=== PATIENT | female | born 1955 ===

== ENCOUNTER 2018-09-16 06:56 | Day surgery (SDC) | payer OTHER ==
[~2018-09-16] VITALS: Ht 160 cm; Wt 72.6 kg
[2018-09-16] VITALS (14 sets, daily range): BP systolic 94–151; BP diastolic 46–75
[~2018-09-16 06:56] MED LIST: AMLODIPINE BESYL5 MG ORAL; CARVEDILOL6.25 MG ORAL; Clindamycin 600mg/D5W 50ml IV ONE; IBUPROFEN600 MG ORAL; Zemuron 50mg/5ml Inj IV ONE; celeBREX 200mg Cap **SURGERY PATIENTS ONLY ORAL ONE; oxyCONTIN 20mg tab ORAL ONE
[2018-09-16] MEDS ORDERED: ASPIR 8181 MG ORAL (07:49)
[2018-09-16] MEDS ORDERED: oxyCONTIN 20mg tab ORAL ONE (08:08)
[2018-09-16] MEDS ORDERED: celeBREX 200mg Cap **SURGERY PATIENTS ONLY ORAL ONE (08:08)
--- NOTE | 2018-09-16 08:15 | Anethesia Preoperative Eval ---
Anesthesia Pre-op PMH/ROS General Date of Evaluation: Sep 16, 2018 Anesthesiologist: Jett ASA Score: ASA 2 Mallampati Score Class I : Soft palate, uvula, fauces, pillars visible Class II: Soft palate, uvula, fauces visible Class III: Soft palate, base of uvula visible Class IV: Only hard plate visible Mallampati Classification: Class II Surgeon: Manny Diagnosis: Right shoulder impingement Surgical Procedure: Right shoulder arthroscopy with decompression Anesthesia History: none Family History: no anesthesia problems Allergies: Coded Allergies: AMOXICILLIN (Verified Allergy, Severe, 09/15/18) ITCHING Medications: see eMAR Patient NPO?: Yes NPO Date: Sep 15, 2018 NPO Time: 22:00 Past Medical History Cardiovascular: Reports: HTN, other - HLD; Denies: CAD, [place], valve dz, arrhythmia Pulmonary: Denies: asthma, COPD, [place], other Gastrointestinal/Genitourinary: Denies: GERD, CRI, ESRD, other Neurologic/Psychiatric: Denies: dementia, CVA, depression/anxiety, TIA, other Endocrine: Reports: DM; Denies: hypothyroidism, steroids, other HEENT: Denies: cataract (L), cataract (R), glaucoma, [place] (L), [place] (R), other Hematology/Immune: Denies: anemia, DVT, bleeding disorder, other Musculoskeletal/Integumentary: Denies: OA, RA, DJD, DDD, edema, other PSxH Narrative: lap bette Anesthesia Pre-op Phys. Exam Physician Exam Last Vital Signs Date Time Temp Pulse Resp B/P (MAP) Pulse Ox O2 Delivery O2 Flow Rate FiO2 09/16/18 07:51 98.2 69 18 151/71 96 Room Air Constitutional: NAD Cardiovascular: RRR Respiratory: CTA Airway Exam Mallampati Score: Class II MO: full ROM: full Teeth: intact Anesthesia Pre-op A/P Labs see chart Studies Pre-op Studies: EKG - sr Risk Assessment & Plan Assessment: ASA II Plan: GA Status Change Before Surgery: No Pre-Antibiotics Drug: Tara Muro MD Sep 16, 2018 08:15
[2018-09-16] MEDS ORDERED: LR 1000ml 1,000 ML IVLG SCH (08:17)
[2018-09-16] MEDS ORDERED: DiphenhydrAMINE 50mg/ml Inj IVP PRN (08:30)
[2018-09-16] MEDS ORDERED: fentaNYL 100 mcg/2 mL IV PRN (08:30)
[2018-09-16] MEDS ORDERED: LORazepam Inj 2mg/ml 1ml IV PRN (08:30)
[2018-09-16] MEDS ORDERED: Hydromorphone 0.5mg/0.5ml inj IVP PRN (08:30)
[2018-09-16] MEDS ORDERED: Ketorolac 30mg Inj IV PRN (08:30)
[2018-09-16] MEDS ORDERED: Midazolam 2mg/2ml Inj IVP PRN (08:30)
--- NOTE | 2018-09-16 09:11 | Pre-Procedure Note/Attestation ---
Pre-Procedure Note/Attestation Complete Prior to Procedure Planned Procedure: right Procedure Narrative: shoulder arthroscopy, sad, possible rc repair Indications for Procedure Pre-Operative Diagnosis: right shoulder impingement, rct Attestation I attest that I discussed the nature of the procedure; its benefits; risks and complications; and alternatives (and the risks and benefits of such alternatives ), prior to the procedure, with the patient (or the patient's legal medical field representative). I attest that, if there was a reasonable possibility of needing a blood transfusion, the patient (or the patient's legal medical field representative) was given the [facility] standardized written summary, pursuant to the Lazaro Darrin Blood Safety Act ([place] Health and Safety Code # 1645, as amended). I attest that I re-evaluated the patient just prior to the surgery and that there has been no change in the patient's H&P, except as documented below: Toni Bryant MD Sep 16, 2018 09:11
[2018-09-16] MEDS ORDERED: Clindamycin 600mg 50 ML IV ONE (09:12)
--- NOTE | 2018-09-16 09:12 | Operative Note - PDOC ---
Operative Note Operative Note Pre-op Diagnosis: right shoulder impingement, rct Procedure: see op report Post-op Diagnosis: same as pre-op plus Operative Findings: consistent w/pre-op dx studies Anesthesia: regional Specimen: none Complications: none Condition: stable Estimated Blood Loss: none Implant(s) used?: No Toni Bryant MD Sep 16, 2018 09:12
[2018-09-16] MEDS ORDERED: EPINEPHrine 1mg/1ml Amp ONE ×2 (09:17→11:13)
[2018-09-16] MEDS ORDERED: Bupivacaine 0.25% Inj 30ml INJ ONE ×2 (09:17→11:13)
[2018-09-16] MEDS ORDERED: Lidocaine 1% MPF 10mg/ml 5ml ONE (09:20)
[2018-09-16] MEDS ORDERED: Propofol 200mg/20ml IV ONE (09:20)
[2018-09-16] MEDS ORDERED: Midazolam 2mg/2ml Inj ONE (09:20)
[2018-09-16] MEDS ORDERED: fentaNYL 100 mcg/2 mL IV ONE (09:20)
[2018-09-16] MEDS ORDERED: Sterile Water Irrig 1000ml IRRIG ONE (10:30)
[2018-09-16] MEDS ORDERED: LR 1000ml ONE (10:30)
[2018-09-16] MEDS ORDERED: NS Irrig 1000ml ONE (10:30)
[2018-09-16] MEDS ORDERED: Ketorolac 30mg Inj ONE ×2 (10:47→11:13)
[2018-09-16] MEDS ORDERED: Dexamethasone 4mg/ml vial ONE (10:47)
[2018-09-16] MEDS ORDERED: Kenalog-40 1ml Vial ONE (11:13)
[2018-09-16] MEDS ORDERED: Morphine Sulfate PF 10 ML ONE (11:13)
[2018-09-16] MEDS ORDERED: NS Irrig 4000ml IRRIG ONE (11:43)
[2018-09-16] MEDS ORDERED: Hydrogen Peroxide 473ml Bottle TOPIC ONE (11:44)
[2018-09-16] MEDS ORDERED: Duramorph PF 10mg/10ml amp EPIDUR ONE (11:45)
--- NOTE | 2018-09-16 12:13 | 48 Hour Post Anesthesia Eval ---
Post Anesthesia Evaluation Procedure: Right shoulder arthroscopy Date of Evaluation: Sep 16, 2018 Airway: patent Nausea: No Vomiting: No Pain Intensity: 0 Hydration Status: adequate Cardiopulmonary Status: at baseline Mental Status/LOC: patient returned to baseline Post-Anesthesia Complications: 0 Follow-up care needed: ready to discharge Tara Cervantes MD Sep 16, 2018 12:13
--- NOTE | 2018-09-16 12:13 | Immediate Post-Op Evaluation ---
Immediate Post-Op Evalulation Immediate Post-Op Evalulation Procedure: Right shoulder arthroscopy Date of Evaluation: Sep 16, 2018 Time of Evaluation: 12:13 IV Fluids: 1L Blood Products: 0 Estimated Blood Loss: min Urinary Output: 0 Blood Pressure Systolic: 102 Blood Pressure Diastolic: 57 Pulse Rate: 62 Respiratory Rate: 16 O2 Sat by Pulse Oximetry: 95 Temperature (Fahrenheit): 97 Pain Score (1-10): 0 Nausea: No Vomiting: No Complications 0 Patient Status: awake, reacts, patent, none Hydration Status: adequate Drug: Clindamycin 600mg Given Within 1 Hr of Incision: Yes Tara Cervantes MD Sep 16, 2018 12:13
[2018-09-16] MEDS ORDERED: Tylenol #3 tab (300mg/30mg) ORAL PRN (14:01)
[2018-09-16] MEDS ORDERED: HYDROmorphone 1mg/ml Carpuject SUBQ PRN (14:01)
[2018-09-16] MEDS ORDERED: HYDROcodone/Acetamin 5/325 tab ORAL PRN (14:01)
[2018-09-16] MEDS ORDERED: D5 1/2NS 1,000 ML IV SCH (14:01)
--- NOTE | 2018-09-16 19:00 | Operative Note - Dictated ---
DATE OF OPERATION: 09/16/2018 PREOPERATIVE DIAGNOSIS: Right shoulder high-grade partial rotator cuff tear. POSTOPERATIVE DIAGNOSIS: 1. Right shoulder partial biceps tendon tear. 2. Right shoulder full-thickness supraspinatus and infraspinatus tendon tear. 3. Impingement syndrome. 4. Bursitis. PROCEDURES: 1. Right shoulder arthroscopy, extensive debridement. 2. Right shoulder arthroscopic subacromial decompression bursectomy. 3. Right shoulder arthroscopic rotator cuff repair. SURGEON: Toni Bryant M.D. ANESTHESIA: Interscalene general. INDICATION FOR PROCEDURE: The patient is a pleasant female, who has had progressive right shoulder pain. She had MRI, which showed high-grade partial rotator cuff tear, elected to undergo right shoulder arthroscopy, possible rotator cuff repair. Risks, limitations, expectations, and complications of the procedure were discussed in detail. All questions addressed. DESCRIPTION OF PROCEDURE: After informed consent was obtained, the patient was brought to the operating room. The patient was placed under interscalene general anesthesia. The patient's right shoulder was prepped and draped in a sterile manner. Time-out was performed. Posterolateral stab incision was then made. Trocar was introduced into the glenohumeral joint. There was chondral damage. The anterior labrum appeared to be intact along with subscap. Biceps had some tearing along the bicipital tuberosity with gross subluxation. There was high-grade partial rotator cuff tear. Camera was then placed in the subacromial space. Complete bursectomy and acromioplasty was completed. Acromion was identified. Acromioplasty starting from lateral to medial and completed from posterior to anterior. Once that was done, the bursal side of the rotator cuff was better evaluated. There was felt to be high-grade partial rotator cuff tear, almost full-thickness tear. Therefore, a two arthroscopic knots were then placed and mattress sutures along with lateral row anchor, this secured the footprint and rotator cuff. Once that was completed, the instruments were removed. Portal sites were closed using 3-0 Monocryl sutures. Steri-Strips and a sterile dressing were applied. The patient was awoken and taken to recovery room with stable vital signs. ESTIMATED BLOOD LOSS: None. COMPLICATIONS: None. SPECIMENS: None. IMPLANTS: Include two arthroscopic rotator cuff repair anchors. Toni Bryant M.D. DR: Giovanna JOB#: [id number] CC: [email or web address]
== END 2018-09-16 17:00 | disposition home or self-care (01) ==
LOC: SUR 06:56
DX: M75.121 Complete rotator cuff tear or rupture of right shoulder, not specified as traumatic (principal); S46.211A Strain of muscle, fascia and tendon of other parts of biceps, right arm, initial encounter; M75.41 Impingement syndrome of right shoulder; M71.9 Bursopathy, unspecified; E78.5 Hyperlipidemia, unspecified; I10 Essential (primary) hypertension; E11.9 Type 2 diabetes mellitus without complications; Z88.0 Allergy status to penicillin; Z90.49 Acquired absence of other specified parts of digestive tract; X58.XXXA Exposure to other specified factors, initial encounter; Y92.9 Unspecified place or not applicable
CPT/HCPCS: 29826; 29827; 82962; J0171; J0690; J1100; J1170; J1885; J2250; J2274; J2405; J2704; J3010; J3490; 94003; 94150; C1713; S0077